=== PATIENT | female | born 1945 | race Caucasian/White ===

== ENCOUNTER → 2022-12-18 13:08 | Outpatient (BNVA) | payer MEDICARE, SELFPAY | PROVIDERS: Visit Provider Thoracic Surgery (Cardiothoracic Vascular Surgery) | DX: I83.90 Asymptomatic varicose veins of unspecified lower extremity (principal) | CPT/HCPCS: 99203 ==

== ENCOUNTER 2022-12-27 13:25 | Outpatient (CLI) | payer MEDICARE, SELFPAY ==
--- NOTE | 2022-12-27 13:30 | USCV_ITS ---
Rubina Whitfield Age: 77 Gender: F : 1945 Exam Date: 12/27/2022 13:43 Ordering Phys: Gregorio Vincent MD (Andy) ([email or web address]) Technologist: DEANA Exam Location: [facility] [place] Indication: HISTORY: PROCEDURES: FINDINGS: The veins were found to be easily compressible with spontaneous blood flow. Non pulsatile flow pattern. On the right side, venous reflux was noted in the greater saphenous vein at the below-knee segment and also at the proximal and mid segments of the small saphenous veins. The reflux times where 1.2, 3.25 and 3.05 seconds respectively. Venous dimensions were 0.37, 0.34 and 0.25 cm respectively. The greater saphenous vein deducted from the surface where 0.71, 1.1 and 0.94 cm respectively. On the left side, venous reflux were noted at the proximal and mid segments of the greater saphenous vein. The reflux times were 1.16 and 1.19 cm. The venous diameter was 0.37 and 0.3 cm respectively. The segments were at a depth of 1.23 and 0.94 cm from the surface. The below-knee segment of the greater saphenous vein was found to have [facility] [place] Significant reflux with a reflux time of 3.64 cm second. The segment was at a depth of 1.01 cm, measuring 0.3 cm in diameter CONCLUSIONS 1. No evidence of deep vein thrombosis. 2. Significant venous reflux of greater than 500 ms were noted at the below-knee segment of the greater saphenous vein and at the small saphenous vein segments on the right side. Except the proximal segment of the small saphenous vein , other venous segments were found to be superficial . 3. On the left side, significant venous reflux of greater than 500 ms were noted at the proximal , mid and below-knee segments of the greater saphenous vein. Except the mid greater saphenous vein segment, other venous segments were found to be greater than 1 cm deep from the surface. The details of the reflux time, venous diameter and depth from the surface, are as mentioned as above Dr Federico Stephen MD [facility] (Electronically Signed) Final Date: 29 December 2022 13:16 S
== END 2022-12-27 13:26 | disposition home or self-care (01) ==
PROVIDERS: PCP Family Medicine; Visit Provider Thoracic Surgery (Cardiothoracic Vascular Surgery)
DX: M79.604 Pain in right leg (principal); M79.605 Pain in left leg; R93.6 Abnormal findings on diagnostic imaging of limbs
CPT/HCPCS: 93970